=== PATIENT | female | born 1980 | race Two or more races ===

== ENCOUNTER → 2019-08-28 14:30 | Outpatient (CLI) | payer OTHER | END | disposition home or self-care (01) | LOC: LAB 14:30 | DX: R19.00 Intra-abdominal and pelvic swelling, mass and lump, unspecified site (principal) ==

== ENCOUNTER 2019-08-30 09:37 | Outpatient (CLI) | payer OTHER | END 2019-08-30 15:20 | disposition home or self-care (01) | LOC: MRI 09:37 | DX: R19.00 Intra-abdominal and pelvic swelling, mass and lump, unspecified site (principal) | CPT/HCPCS: 72196 ==

== ENCOUNTER 2020-01-25 10:11 | Outpatient (CLI) | payer OTHER | END 2020-01-25 10:20 | disposition home or self-care (01) | LOC: LAB 10:11 | DX: D64.89 Other specified anemias (principal); N39.0 Urinary tract infection, site not specified; R10.84 Generalized abdominal pain ==